=== PATIENT | female | born 1945 | race Caucasian/White ===

== ENCOUNTER 2021-03-11 09:02 | Outpatient (CLI) | payer MEDICARE | END 2021-03-11 09:03 | disposition home or self-care (01) | LOC: CSHCT 09:02 | PROVIDERS: ATTEND Family Medicine | DX: D62 Acute posthemorrhagic anemia (principal); R19.00 Intra-abdominal and pelvic swelling, mass and lump, unspecified site; K76.9 Liver disease, unspecified; N94.89 Other specified conditions associated with female genital organs and menstrual cycle | CPT/HCPCS: 74178 ==